=== PATIENT | female | born 1945 ===

== ENCOUNTER 2016-06-22 13:01 | Inpatient (IN) | payer MEDICARE, OTHER ==
--- NOTE | ~2016-06-22 | EGD ---
EGD REPORT [facility] [address] [address] NAME: IAN TAYLOR : [birth year] STATUS : ADM IN PAT#: [id number] AGE: 71 ADM/REG DATE : 06/22/16 MR#: [id number] REPORT SERV DATE: 06/24/16 DICTATED BY: BLAS SHAH DATE: 06/24/16 REPORT STATUS : Draft TRANSCRIBED BY: [facility] DATE: 06/24/16 Endoscopy Center Patient Name: Ian Taylor Date of : 1945 Attending MD: BLAS SHAH MD Procedure Date No Time: 06/24/2016 Procedure: Colonoscopy Indications: Melena, Anemia Referring MD: KEITH DOTY MD Medicines: Monitored Anesthesia Care Complications: No immediate complications. Estimated blood loss: None. Procedure: After I obtained informed consent, the scope was passed under direct vision. Throughout the procedure, the patient's blood pressure, pulse, and oxygen saturations were monitored continuously. The CF [id number] was introduced through the anus and advanced to the cecum, identified by appendiceal orifice and ileocecal valve. The colonoscopy was technically difficult and complex due to inadequate bowel prep. The patient tolerated the procedure poorly due to the patient's respiratory instability (pulmonary aspiration). The quality of the bowel preparation was inadequate. Findings: The perianal and digital rectal examinations were normal. Pertinent negatives include no palpable rectal lesions. Extensive amounts of semi-liquid stool was found in the transverse colon, in the ascending colon and in the cecum, precluding visualization. There is no endoscopic evidence of bleeding in the entire colon. The examination was ended prematurely secondary to patient desaturation and concern for aspiration. Impression: - Preparation of the colon was inadequate. - No suggestion of bleeding in the entire colon. - The exam was suboptimal due to patient preparation and patient instability. Recommendation: - Return patient to [facility] for [facility] care. - Repeat colonoscopy in 6 months because the bowel preparation was poor. Procedure Code(s): --- Professional --- 63281, Colonoscopy, flexible, proximal to splenic flexure; diagnostic, with or without collection of specimen(s) by brushing or washing, with or without EGD REPORT [facility] [address] [address] NAME: IAN TAYLOR : [birth year] STATUS : ADM IN [facility]#: [id number] AGE: 71 ADM/REG DATE : 06/22/16 MR#: [id number] REPORT SERV DATE: 06/24/16 DICTATED BY: BLAS SHAH DATE: 06/24/16 REPORT STATUS : Draft TRANSCRIBED BY: [employer] DATE: 06/24/16 colon decompression (separate procedure) Diagnosis Code(s): --- Professional --- K92.1, Melena D64.9, Anemia, unspecified CPT copyright 2013 [employer]. All rights reserved. The codes documented in this report are preliminary and upon pest control technician review may be revised to meet current compliance requirements. Blas Shah MD BLAS SHAH MD 06/24/2016 9:38 AM This report has been signed electronically. Number of Addenda: 0 Note Initiated On: 06/24/2016 8:31 AM Scope Withdrawal Time 0 hours 0 minutes 0 seconds [address] [address]
--- NOTE | ~2016-06-22 | DS ---
Discharge Summary [facility] [address] [facility] [place]. [address] NAME: IAN TAYLOR : [birth year] STATUS : DIS IN PAT#: [id number] AGE: 71 ADM/REG DATE : 06/22/16 MR#: [id number] REPORT SERV DATE: 06/28/16 DICTATED BY: BRETT MARTINEZ DATE: 06/27/16 REPORT STATUS : Draft TRANSCRIBED BY: JACQUELYN DATE: 06/27/16 ADMISSION DATE: 06/22/2016 DISCHARGE DATE: 06/27/2016 OUTPATIENT GI: Will be Dr. Mace. OUTPATIENT GUMMED TAPE PRESS OPERATOR: Dr. Maldonado. FINAL DIAGNOSES: 1. Acute blood loss anemia, status post 4 units of packed red blood cells. Upper gastrointestinal bleed or duodenal nodule bleeding, removed and epinephrine injected. 2. History of atrial fibrillation, flutter, and cardioversion. 3. History of valve repair. 4. Hypertension. 5. Rheumatoid arthritis. DIAGNOSTIC EXAMS: Chest x-ray showing no acute cardiopulmonary process. Repeat chest x-ray showing venous congestion consistent with mild volume overload or CHF pattern, discoid atelectasis left mid lung zone. HOSPITAL COURSE: Please refer to the H and P done by Dr. Weldon dated on 06/22/2016. Briefly, this is a 71-year-old female with atrial fibrillation, flutter, on sotalol and Eliquis. The patient has been feeling fatigued and noticed that has been having melena for the last several days. The patient had coffee-grounds emesis on the day of admission, came to the emergency room and was found to be anemic. The patient was given blood transfusion and GI was consulted. The patient eventually got an EGD after being off the Eliquis for 36 to 48 hours and they found a single bleeding duodenal polyp which was resected and retrieved, hiatal hernia, red blood in the gastric antrum. A colonoscopy was done which showed inadequate prep, but there was no bleeding found. The patient had an aspiration during the procedure and was temporarily intubated. She was extubated after the procedure and the patient is fine. When we did an x-ray which did not show any pneumonia and she did well without antibiotics. The patient's H and H was monitored, and from an initial 6.4 and 21.9, she will be discharged on 9.4 and 30. She is tolerating a GI soft diet and saturating at 98% on room air. Once we get GI to clear the patient, we will be discharging her with the above diagnoses. She will be on the following medications. Plaquenil 200 mg twice a day, Isamar 180 mg a day, Protonix 40 mg twice a day, sotalol 80 mg twice a day, Tylenol as needed, Norvasc 5 mg a day, Nazanin-C 1000 mg at bedtime, vitamin D3 of 2000 units a day. She will be off potassium, Lasix, Hyzaar, and Coreg for now, indefinitely off the Eliquis. FOLLOWUP: The patient will be following up with Dr. Hollis Pacheco in one week. Follow up with GI, Dr. Mace, in one to two weeks and Dr. Maldonado in two weeks. I would defer to them if the patient needs to be restarted on the other blood pressure medications and Eliquis. I have warned her that if she has any more bleeding, feeling faint, pale, not to hesitate to come back to the emergency room. This has been discussed with the patient. She agreed and understood the plan. Discharge Summary [place] [id number] [facility] [place]. [address] NAME: IAN TAYLOR : [birth year] STATUS : DIS IN PAT#: [id number] AGE: 71 ADM/REG DATE : 06/22/16 MR#: [id number] REPORT SERV DATE: 06/28/16 DICTATED BY: BRETT MARTINEZ. DATE: 06/27/16 REPORT STATUS : Draft TRANSCRIBED BY: JACQUELYN DATE: 06/27/16 Time spent 35 minutes. SABRA/JACQUELYN Brett Martinez M.D. / [id number] CC: Alessandro Downing M.D.
--- NOTE | ~2016-06-22 | EGD ---
EGD REPORT [facility] [address] [address] NAME: IAN TAYLOR : [birth year] STATUS : ADM IN PAT#: [id number] AGE: 71 ADM/REG DATE : 06/22/16 MR#: [id number] REPORT SERV DATE: 06/24/16 DICTATED BY: BLAS SHAH DATE: 06/24/16 REPORT STATUS : Draft [facility]ANSCRIBED [facility]: [facility] DATE: 06/24/16 Endoscopy Center Patient Name: Ian Taylor Date of : 1945 Attending MD: BLAS SHAH MD Procedure Date No Time: 06/24/2016 Procedure: Upper GI endoscopy Indications: Melena Medicines: Monitored Anesthesia Care Complications: No immediate complications. Estimated blood loss: Minimal. Procedure: After obtaining informed consent, the endoscope was passed under direct vision. Throughout the procedure, the patient's blood pressure, pulse, and oxygen saturations were monitored continuously. The GIF [id number] was introduced through the mouth, and advanced to the second part of duodenum. The upper GI endoscopy was accomplished without difficulty. The patient tolerated the procedure well. Findings: The examined esophagus was normal. A medium-sized hiatus hernia was present. Red blood was found in the gastric antrum. A single 8 mm semi-sessile polyp with bleeding was found in the duodenal bulb. Area was successfully injected with 4 mL of a 1:10,000 solution of epinephrine for hemostasis. The polyp was removed with a hot snare. Resection and retrieval were complete. Estimated blood loss was minimal. The exam was otherwise without abnormality. Impression: - Red blood in the gastric antrum. - Hiatal hernia - A single bleeding duodenal polyp. Resected and retrieved. Injected. - The examination was otherwise normal. Recommendation: - Perform a colonoscopy today. Procedure Code(s): --- Professional --- 34850, 59, Esophagogastroduodenoscopy, flexible, transoral; with control of bleeding, any method 85010, Esophagogastroduodenoscopy, flexible, transoral; with removal of tumor(s), polyp(s), or other lesion(s) by snare technique EGD REPORT [facility] [address] [place] [address] [place]. [address] NAME: IAN TAYLOR : [birth year] STATUS : ADM IN [facility]#: [id number] AGE: 71 ADM/REG DATE : 06/22/16 MR#: [id number] REPORT SERV DATE: 06/24/16 DICTATED BY: BLAS SHAH DATE: 06/24/16 REPORT STATUS : Draft TRANSCRIBED BY: [employer] DATE: 06/24/16 Diagnosis Code(s): --- Professional --- K92.2, Gastrointestinal hemorrhage, unspecified K31.7, Polyp of stomach and duodenum K92.1, Melena CPT copyright 2013 [employer]. All rights reserved. The codes documented in this report are preliminary and upon reel man review may be revised to meet current compliance requirements. Blas Shah MD BLAS SHAH MD 06/24/2016 9:42 AM This report has been signed electronically. Number of Addenda: 0 Note Initiated On: 06/24/2016 8:31 AM Scope Withdrawal Time 0 hours 0 minutes 0 seconds [address] [facility] [place] [address]
--- NOTE | ~2016-06-22 | HP ---
History And Physical [facility] [address] [facility] [place]. [address] NAME: IAN TAYLOR : [birth year] STATUS : ADM IN [facility]#: [id number] AGE: 71 ADM/REG DATE : 06/22/16 MR#: [id number] REPORT SERV DATE: 06/22/16 DICTATED BY: ALAINA RAMIREZ DATE: 06/22/16 REPORT STATUS : Draft TRANSCRIBED BY: JACQUELYN DATE: 06/22/16 DATE OF ADMISSION: 06/22/2016 CHIEF COMPLAINT: Fatigue. HISTORY OF PRESENT ILLNESS: The patient is a very pleasant 71-year-old white female. She has a history of atrial flutter and fib, is on sotalol and Eliquis. The patient reports that for about the last week and a half she has felt fatigued and winded at times, which is unusual for her. She felt dizzy today and decided to finally seek care. She presented to [facility] ER. She does report after extensive questioning that she has noticed a black color to her stools at that times over the last several days. In addition, she had an episode of emesis that appeared coffee-ground this morning. Her nausea is now resolved. She has only had one episode of vomiting. She has had no abdominal pain. No weight loss. She has not had any diarrhea. She has not had any associated fevers or chest pain. She does not take any jznv-bnb-xltacke NSAIDs. PAST MEDICAL HISTORY: 1. Positive for atrial flutter and AFib. 2. Rheumatoid arthritis. 3. Hypertension. 4. Allergies. 5. GERD. 6. Valvular heart disease with a valve repair, she cannot recall which valve. PAST SURGICAL HISTORY: She has had a left foot surgery x3, , valve repair, cholecystectomy, and appendectomy. ALLERGIES: NO KNOWN DRUG ALLERGIES. SOCIAL HISTORY: She is a nondrinker and nonsmoker. She has been for 50 years. Her is at bedside. She has multiple children and grandchildren. 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 FAMILY HISTORY: Negative for any GI malignancies. HOME MEDICATIONS: Include the followin. Tylenol p.r.n. 2. Norvasc 5 daily. 3. Eliquis 5 daily. 4. Coreg 6.25 twice daily. 5. Vitamin D3 daily. 6. Isamar 180 daily. 7. Lasix 40 mg daily. 8. Plaquenil 200 twice daily. 9. Losartan/HCTZ 100/12.5 daily. 10.Prilosec 20 daily. History And Physical [address] [place]. [address] NAME: IAN TAYLOR : [birth year] STATUS : ADM IN PAT#: [id number] AGE: 71 ADM/REG DATE : 06/22/16 MR#: [id number] REPORT SERV DATE: 06/22/16 DICTATED BY: ALAINA RAMIREZ DATE: 06/22/16 REPORT STATUS : Draft TRANSCRIBED BY: JACQUELYN DATE: 06/22/16 11.Klor-Con daily. 12.Sotalol 80 twice daily. 13.Nazanin-C daily. 14.Turmeric daily. 15.Besivance ophthalmic solution. 16.Durezol ophthalmic solution. REVIEW OF SYSTEMS: A full 10-point review of systems obtained. Pertinent positives already mentioned in the HPI. PHYSICAL EXAMINATION: VITAL SIGNS: BP 130/60, temperature 97.3, pulse 65, respirations rate 16, and saturations 98%. GENERAL: Pleasant, well-developed white female, talkative. HEENT: Normocephalic and atraumatic. Throat is clear. NECK: Supple. HEART: Regular rate and rhythm. LUNGS: Grossly clear. ABDOMEN: Soft, nondistended, and nontender. EXTREMITIES: Warm and dry. SKIN: Intact. She has no peripheral edema. Pulses are 2+ at the feet. Hemoccult was positive per the ER physician, but it was brown stool. LABORATORY AND X-RAY: H and H are 6.4 and 22, white count 7.6, and platelets are 195. Coags are normal. Chemistry panel is normal. Troponin is negative at 0.02. Mag is normal. EKG shows sinus rhythm. Chest x-ray is clear. ASSESSMENT/PLAN: 1. Gastrointestinal bleed with significant anemia. We will transfuse a total of 2 units now, then recheck her hemoglobin. If she is less than 8, we will give [address] on a Protonix drip. Keep her n.p.o. Provide IV fluid resuscitation. Do serial hemoglobin and hematocrit. We will consult GI who I have already called personally for endoscopy. I suspect she will need an upper endoscopy to start. We will hold her Eliquis and follow her picture clinically. Currently, she is very stable hemodynamically, I think she could go to a monitored bed. 2. History of atrial flutter/atrial fibrillation. We will continue her sotalol, but we will have to hold her other rate-slowing medications given that she has ongoing gastrointestinal bleeding. We will also hold her Eliquis. 3. History of rheumatoid arthritis. Continue Plaquenil. 4. History of hypertension. Holding antihypertensives. 5. Deep venous thrombosis prophylaxis. SCDs for now since she is bleeding. 6. Disposition. Pending above. History And Physical [address] [place]. [address] NAME: IAN TAYLOR : [birth year] STATUS : ADM IN [facility]#: [id number] AGE: 71 ADM/REG DATE : 06/22/16 MR#: [id number] REPORT SERV DATE: 06/22/16 DICTATED BY: ALAINA RAMIREZ DATE: 06/22/16 REPORT STATUS : Draft TRANSCRIBED BY: JACQUELYN DATE: 06/22/16 LAKSHMI/JACQUELYN Alaina Ramirez M.D. / [id number] CC: Alessandro Downing M.D. Mark Thel, M.D.
--- NOTE | ~2016-06-22 | CN ---
Consultation Report [facility] [address] [place]. [address] NAME: IAN TAYLOR : [birth year] STATUS : ADM IN PAT#: [id number] AGE: 71 ADM/REG DATE : 06/22/16 MR#: [id number] REPORT SERV DATE: 06/22/16 DICTATED BY: MIRACLE MORGAN DATE: 06/22/16 REPORT STATUS : Draft TRANSCRIBED BY: MODJoe DATE: 06/22/16 DATE OF CONSULTATION: 06/22/2016 REASON FOR CONSULTATION: Evaluation and management of anemia and GI bleed. HISTORY OF PRESENT ILLNESS: Ms. Ian Taylor is a very pleasant 71-year-old female patient, who presented to [facility] today with weakness and shortness of breath. The patient states that she has been feeling these symptoms along with fatigue for several months now. Initially, she attributed to her heart stating that she has abnormal heart rhythm as well as a heart murmur. She states that she has been on a regimen of Eliquis since 10/2015 as well as in 02/2016 she underwent cardioversion. She states that this has been the second cardioversion that she has undertaken for atrial flutter. She states that over the last few days she has noticed her stools to be darker than normal. She had an episode of nausea with emesis this morning which she states she threw up what appeared to be coffee grounds. She has history of colonoscopy multiple years ago greater than 20 per her report done at [facility]. She cannot recall any of the findings on that exam. Her hemoglobin on admission was 6.4, BUN 26, creatinine of 0.69. Of note, she had a hemoglobin in 02/2016 noted to be 12.6. She took her Eliquis this morning. Presently, she states that she has no abdominal pain. Over the past several months, she has had early satiety. No dysphagia, odynophagia. No hematochezia. No nausea up until this morning. Her emesis did not return any bright red blood. She has no family history of colon cancer or colon polyps. I have discussed with the patient as well as her who is present at the bedside. We will allow the Eliquis to clear her system, she took it this morning. We will begin a slow bowel prep as she has noted she has problems tolerating a bowel prep. We will plan on EGD and colonoscopy to be done 06/24/2016 unless she has acute signs of bleeding and large volume blood loss. I did discuss the risks, benefits, alternatives, and complications with her and her to include, but not limited to risk of bleeding, perforation, infection, reaction to medication, as well as cardiac and pulmonary side effects. She is agreeable to proceed. PAST MEDICAL HISTORY: Positive for C. diff diarrhea in 05/2015 treated by her primary care physician, Dr. Hollis Pacheco; atrial fib/flutter, status post 2 cardioversions on regimen of Eliquis; cardiac murmur; cataracts; hypertension; rheumatoid arthritis, on Plaquenil; cholecystectomy; appendectomy; left foot surgery; cellulitis of the left leg; and thyroid cystectomy. FAMILY HISTORY: Noncontributory from a GI standpoint. SOCIAL HISTORY: She is . She denies alcohol, tobacco, or illicits. She denies NSAIDs. She still works at [employer]. ALLERGIES: NOTHING. HOME MEDICATIONS: Consist of Tylenol, Norvasc, Eliquis, Coreg, turmeric, Durezol, Besivance, Plaquenil, Isamar, Lasix, Nazanin C, vitamin D3, Hyzaar, Prilosec, potassium, and Betapace. Consultation Report [address] [place]. [address] NAME: IAN TAYLOR : [birth year] STATUS : ADM IN [facility]#: [id number] AGE: 71 ADM/REG DATE : 06/22/16 MR#: [id number] REPORT SERV DATE: 06/22/16 DICTATED BY: MIRACLE MORGAN DATE: 06/22/16 REPORT STATUS : Draft TRANSCRIBED BY: MODL DATE: 06/22/16 REVIEW OF SYSTEMS: A 10-point review of systems has been obtained with pertinent positives being addressed in the history of present illness. PERTINENT LABORATORY DATA: Sodium 143, potassium 4.2, BUN is 26, creatinine 0.69, white count 7.6, hemoglobin 6.4, hematocrit 21.9, and platelet count 195. INR of 1.4. PHYSICAL EXAMINATION: VITAL SIGNS: Temperature 97.3, pulse 65, respirations of 16, and blood pressure 131/60. NEURO: Reveals an alert, female, resting in bed. No obvious focal deficits. GENERAL: She is cooperative. She is in no obvious acute distress. She is awake. She is alert. She is oriented x3. HEAD, EARS, EYES, NOSE, AND THROAT: Anicteric. Pupils equal, round, reactive to light and accommodation. Normocephalic and atraumatic. NECK: No JVD. No palpable nodes. LUNGS: Diminished throughout. Normal respiratory effort exhibited. CARDIOVASCULAR SYSTEM: Regular rate and rhythm. No audible murmur. ABDOMEN: Soft, obese, nontender nondistended. No rebound, guarding, or organomegaly elicited on exam. Active bowel sounds in all four quadrants. EXTREMITIES: She has left lower extremity scant edema which she states is chronic. SKIN: Warm, dry, intact, but pale. ASSESSMENT: 1. Acute blood loss anemia. 2. Hemoccult-positive stools with melena. 3. Atrial fibrillation, on Eliquis. 4. Nausea with vomiting. 5. Weakness and dizziness secondary to acute blood loss anemia. PLAN: 1. Transfuse. 2. PPI drip. 3. Soft diet tonight. 4. Clear liquid diet in the morning. 5. Allow Eliquis to clear her system. 6. EGD as well as colonoscopy on 06/24/2016. We will begin her bowel prep today. We will follow. DEBORAH/JACQUELYN SOFY Myers Consultation Report [address] [address] NAME: IAN TAYLOR : [birth year] STATUS : ADM IN PAT#: [id number] AGE: 71 ADM/REG DATE : 06/22/16 MR#: [id number] REPORT SERV DATE: 06/22/16 DICTATED BY: MIRACLE MORGAN DATE: 06/22/16 REPORT STATUS : Draft TRANSCRIBED BY: JACINTOL DATE: 06/22/16 / [id number] CC: Alessandro Downing M.D.
[2016-06-22 11:17] LABS: BASOPHILS 0.3 %; BASOPHILS ABSOLUTE 0.02 10/3/uL (0.0-0.16); EOSINOPHILS 1.2 %; EOSINOPHILS ABSOLUTE 0.09 10/3/uL (0.0-0.53); IMMATURE GRANULOCYTES 0.5 %; IMMATURE GRANULOCYTES ABSOLUTE 0.04 10/3/uL (0.0-0.11); LYMPHOCYTES 9.5 %; LYMPHOCYTES ABSOLUTE 0.72 10/3/uL (0.67-4.30); MEAN PLATELET VOLUME 9.6 fL (9.2-13.0); MONOCYTES ABSOLUTE 0.38 10/3/uL (0.21-1.20); NEUTROPHILS 83.5 %; NEUTROPHILS ABSOLUTE 6.32 10/3/uL (2.02-8.40); PLATELET COUNT 195 10/3/uL (150-400); RBC DISTRIBUTION WIDTH 15.4 % (12.0-16.0); WHITE BLOOD CELLS 7.6 10/3/uL (4.5-10.5)
[2016-06-22 11:18] LABS: HEMATOCRIT 21.9 % (36.0-48.0); HEMOGLOBIN 6.4 g/dL (12.0-16.0); MEAN CORPUSCULAR VOLUME 81.4 fL (80-100); RED CELL COUNT 2.69 10/6/uL (4.0-5.6)
[2016-06-22 11:19] LABS: MANUAL DIFF NO %; MEAN CORPUS HGB CONC 29.2 g/dL (32.0-36.0); MEAN CORPUSCULAR HEMOGLOB 23.8 pg (26.0-34.0)
[2016-06-22 11:24] LABS: INTERNATIONAL NORMAL RATI 1.4 UNITS (-); PARTIAL THROMBO TIME 32.3 SEC (22.5-37.2); PROTIME (NOT ORD) 17.4 SEC (12.0-14.5)
[2016-06-22 11:34] LABS: BUN (BLOOD UREA NITROGEN) 26 MG/DL (6-23); CALCIUM, SERUM 8.5 MG/DL (8.5-10.4); CHEST PAIN PROFILE TAT 0 Hrs 23 Mins; CHLORIDE, SERUM 108 MMOL/L (96-112); CO2 (CARBON DIOXIDE) 27 MMOL/L (24-34); CREATININE 0.69 MG/DL (0.55-1.02); GFR AFRICAN AMERICAN 103 ML/MIN (>=60); GFR NON AFRICAN AMERICAN 89 ML/MIN (>=60); GLUCOSE, SERUM 114 MG/DL (60-99); POTASSIUM, SERUM 4.2 MMOL/L (3.5-5.3); SODIUM, SERUM 143 MMOL/L (135-148); TROPONIN I <0.02 NG/ML (<0.05)
[~2016-06-22 13:01] MED LIST: ALLEGRA180 PO; BETAPACE80 PO; CEFZIL500 MG PO; COREG25 PO; COREG6 PO; ELIQUIS 5 MG TAB5 MG PO; ESTER-C PO; HYZAAR1 TAB PO; KLOR-CON M2020 MEQ PO; L40 PO; METHOC500B PO; NORV5 PO; PLAQ200B PO; PREV15 PO; PRILOSEC40 MG PO; PROAIRRESP INH; PROBIOTIC; T3 PO; TESSALON200 MG PO; VITAMIN D31000 UNIT PO
[2016-06-22] MEDS ORDERED: NORV5 PO (13:02)
[2016-06-22] MEDS ORDERED: COREG6 PO (13:02)
[2016-06-22] MEDS ORDERED: HYZAAR1 TAB PO (13:02)
[2016-06-22] MEDS ORDERED: ESTER-C PO (13:03)
[2016-06-22] MEDS ORDERED: BETAPACE80 PO (13:03)
[2016-06-22] MEDS ORDERED: ELIQUIS 5 MG TAB5 MG PO (13:03)
[2016-06-22] MEDS ORDERED: PRILOSEC OTC20 MG PO (13:04)
[2016-06-22] MEDS ORDERED: ALLEGRA180 PO (13:04)
[2016-06-22] MEDS ORDERED: VITAMIN D31000 UNIT PO (13:04)
[2016-06-22] MEDS ORDERED: TURMERIC PO (13:05)
[2016-06-22] MEDS ORDERED: EYE OPH ×2 (13:06→13:07)
[2016-06-22] MEDS ORDERED: DUREZOL 0.05% OPH (13:06)
[2016-06-22] MEDS ORDERED: BESIVANCE 0.6% OPH (13:07)
[2016-06-22 19:46] LABS: HEMATOCRIT 29.4 % (36.0-48.0); HEMOGLOBIN 9.2 g/dL (12.0-16.0)
[2016-06-23 01:51] LABS: BASOPHILS 0.2 %; BASOPHILS ABSOLUTE 0.01 10/3/uL (0.0-0.16); EOSINOPHILS 1.4 %; EOSINOPHILS ABSOLUTE 0.09 10/3/uL (0.0-0.53); HEMOGLOBIN 8.3 g/dL (12.0-16.0); IMMATURE GRANULOCYTES 0.6 %; IMMATURE GRANULOCYTES ABSOLUTE 0.04 10/3/uL (0.0-0.11); LYMPHOCYTES 16.3 %; LYMPHOCYTES ABSOLUTE 1.06 10/3/uL (0.67-4.30); MEAN CORPUSCULAR VOLUME 81.6 fL (80-100); MEAN PLATELET VOLUME 9.5 fL (9.2-13.0); MONOCYTES 7.8 %; MONOCYTES ABSOLUTE 0.51 10/3/uL (0.21-1.20); NEUTROPHILS 73.7 %; PLATELET COUNT 151 10/3/uL (150-400); RBC DISTRIBUTION WIDTH 15.2 % (12.0-16.0); RED CELL COUNT 3.15 10/6/uL (4.0-5.6); WHITE BLOOD CELLS 6.5 10/3/uL (4.5-10.5)
[2016-06-23 01:52] LABS: HEMATOCRIT 25.7 % (36.0-48.0); MANUAL DIFF NO %; MEAN CORPUS HGB CONC 32.3 g/dL (32.0-36.0); MEAN CORPUSCULAR HEMOGLOB 26.3 pg (26.0-34.0)
[2016-06-23 01:59] LABS: INTERNATIONAL NORMAL RATI 1.2 UNITS (-); PROTIME (NOT ORD) 14.7 SEC (12.0-14.5)
[2016-06-23 02:53] LABS: % IRON SAT 7 % (20-50); CALCIUM, SERUM 8.4 MG/DL (8.5-10.4); CHLORIDE, SERUM 111 MMOL/L (96-112); CO2 (CARBON DIOXIDE) 28 MMOL/L (24-34); CREATININE 0.64 MG/DL (0.55-1.02); FERRITIN 5 NG/ML (8-252); GFR AFRICAN AMERICAN 106 ML/MIN (>=60); GFR NON AFRICAN AMERICAN 91 ML/MIN (>=60); GLUCOSE, SERUM 108 MG/DL (60-99); IRON BINDING CAPACITY 361 MCG/DL (225-410); IRON, SERUM 26 MCG/DL (35-150); SODIUM, SERUM 145 MMOL/L (135-148)
[2016-06-23 02:54] LABS: BUN (BLOOD UREA NITROGEN) 21 MG/DL (6-23); FOLATE 30.5 NG/ML (>5.2)
[2016-06-23 13:06] LABS: HEMATOCRIT 25.9 % (36.0-48.0); HEMOGLOBIN 8.3 g/dL (12.0-16.0)
[2016-06-23 20:41] LABS: HEMATOCRIT 25.1 % (36.0-48.0); HEMOGLOBIN 7.6 g/dL (12.0-16.0)
[2016-06-24 06:21] LABS: BASOPHILS 0.3 %; BASOPHILS ABSOLUTE 0.02 10/3/uL (0.0-0.16); EOSINOPHILS 3.6 %; EOSINOPHILS ABSOLUTE 0.23 10/3/uL (0.0-0.53); IMMATURE GRANULOCYTES 0.5 %; IMMATURE GRANULOCYTES ABSOLUTE 0.03 10/3/uL (0.0-0.11); LYMPHOCYTES 14.7 %; LYMPHOCYTES ABSOLUTE 0.94 10/3/uL (0.67-4.30); MEAN CORPUS HGB CONC 31.1 g/dL (32.0-36.0); MEAN CORPUSCULAR HEMOGLOB 26.3 pg (26.0-34.0); MEAN PLATELET VOLUME 9.9 fL (9.2-13.0); MONOCYTES 7.7 %; MONOCYTES ABSOLUTE 0.49 10/3/uL (0.21-1.20); NEUTROPHILS 73.2 %; NEUTROPHILS ABSOLUTE 4.68 10/3/uL (2.02-8.40); PLATELET COUNT 160 10/3/uL (150-400); RBC DISTRIBUTION WIDTH 15.2 % (12.0-16.0); RED CELL COUNT 3.53 10/6/uL (4.0-5.6); WHITE BLOOD CELLS 6.4 10/3/uL (4.5-10.5)
[2016-06-24 06:29] LABS: INTERNATIONAL NORMAL RATI 1.1 UNITS (-); PROTIME (NOT ORD) 14.2 SEC (12.0-14.5)
[2016-06-24 06:33] LABS: CALCIUM, SERUM 8.3 MG/DL (8.5-10.4); CHLORIDE, SERUM 113 MMOL/L (96-112); CO2 (CARBON DIOXIDE) 26 MMOL/L (24-34); CREATININE 0.53 MG/DL (0.55-1.02); GFR AFRICAN AMERICAN 112 ML/MIN (>=60); GFR NON AFRICAN AMERICAN 97 ML/MIN (>=60); GLUCOSE, SERUM 107 MG/DL (60-99); POTASSIUM, SERUM 4.2 MMOL/L (3.5-5.3); SODIUM, SERUM 147 MMOL/L (135-148)
[2016-06-24 06:34] LABS: BUN (BLOOD UREA NITROGEN) 15 MG/DL (6-23)
[2016-06-24 06:38] LABS: HEMATOCRIT 29.9 % (36.0-48.0); HEMOGLOBIN 9.3 g/dL (12.0-16.0); MANUAL DIFF NO %; MEAN CORPUSCULAR VOLUME 84.7 fL (80-100)
[2016-06-24 12:05] LABS: HEMATOCRIT 30.3 % (36.0-48.0); HEMOGLOBIN 9.4 g/dL (12.0-16.0)
[2016-06-25 06:54] LABS: BASOPHILS 0.4 %; BASOPHILS ABSOLUTE 0.02 10/3/uL (0.0-0.16); EOSINOPHILS 2.3 %; EOSINOPHILS ABSOLUTE 0.13 10/3/uL (0.0-0.53); HEMOGLOBIN 7.9 g/dL (12.0-16.0); IMMATURE GRANULOCYTES 0.2 %; IMMATURE GRANULOCYTES ABSOLUTE 0.01 10/3/uL (0.0-0.11); LYMPHOCYTES 15.7 %; LYMPHOCYTES ABSOLUTE 0.88 10/3/uL (0.67-4.30); MEAN CORPUS HGB CONC 30.6 g/dL (32.0-36.0); MEAN CORPUSCULAR HEMOGLOB 26.2 pg (26.0-34.0); MEAN CORPUSCULAR VOLUME 85.4 fL (80-100); MEAN PLATELET VOLUME 10.2 fL (9.2-13.0); MONOCYTES 7.8 %; MONOCYTES ABSOLUTE 0.44 10/3/uL (0.21-1.20); NEUTROPHILS 73.6 %; NEUTROPHILS ABSOLUTE 4.13 10/3/uL (2.02-8.40); PLATELET COUNT 126 10/3/uL (150-400); RBC DISTRIBUTION WIDTH 15.9 % (12.0-16.0); RED CELL COUNT 3.02 10/6/uL (4.0-5.6); WHITE BLOOD CELLS 5.6 10/3/uL (4.5-10.5)
[2016-06-25 06:56] LABS: HEMATOCRIT 25.8 % (36.0-48.0); MANUAL DIFF NO %
[2016-06-25 06:58] LABS: CHLORIDE, SERUM 108 MMOL/L (96-112); CO2 (CARBON DIOXIDE) 27 MMOL/L (24-34); CREATININE 0.55 MG/DL (0.55-1.02); GFR AFRICAN AMERICAN 111 ML/MIN (>=60); GFR NON AFRICAN AMERICAN 96 ML/MIN (>=60); GLUCOSE, SERUM 87 MG/DL (60-99); POTASSIUM, SERUM 3.9 MMOL/L (3.5-5.3); SODIUM, SERUM 142 MMOL/L (135-148)
[2016-06-25 06:59] LABS: BUN (BLOOD UREA NITROGEN) 11 MG/DL (6-23)
[2016-06-25 17:34] LABS: HEMOGLOBIN 9.2 g/dL (12.0-16.0)
[2016-06-25 17:36] LABS: HEMATOCRIT 29.3 % (36.0-48.0)
[2016-06-26 02:06] LABS: BASOPHILS 0.5 %; BASOPHILS ABSOLUTE 0.03 10/3/uL (0.0-0.16); EOSINOPHILS 2.6 %; EOSINOPHILS ABSOLUTE 0.16 10/3/uL (0.0-0.53); HEMATOCRIT 28.9 % (36.0-48.0); HEMOGLOBIN 9.1 g/dL (12.0-16.0); IMMATURE GRANULOCYTES 0.3 %; IMMATURE GRANULOCYTES ABSOLUTE 0.02 10/3/uL (0.0-0.11); LYMPHOCYTES 12.6 %; LYMPHOCYTES ABSOLUTE 0.77 10/3/uL (0.67-4.30); MANUAL DIFF NO %; MEAN CORPUS HGB CONC 31.5 g/dL (32.0-36.0); MEAN CORPUSCULAR HEMOGLOB 26.5 pg (26.0-34.0); MEAN PLATELET VOLUME 10.3 fL (9.2-13.0); MONOCYTES 8.9 %; MONOCYTES ABSOLUTE 0.54 10/3/uL (0.21-1.20); NEUTROPHILS 75.1 %; NEUTROPHILS ABSOLUTE 4.57 10/3/uL (2.02-8.40); PLATELET COUNT 148 10/3/uL (150-400); RED CELL COUNT 3.44 10/6/uL (4.0-5.6); WHITE BLOOD CELLS 6.1 10/3/uL (4.5-10.5)
[2016-06-26 10:20] LABS: HEMATOCRIT 31.7 % (36.0-48.0); HEMOGLOBIN 9.8 g/dL (12.0-16.0)
[2016-06-27 06:14] LABS: BASOPHILS 0.4 %; BASOPHILS ABSOLUTE 0.02 10/3/uL (0.0-0.16); EOSINOPHILS 3.7 %; EOSINOPHILS ABSOLUTE 0.18 10/3/uL (0.0-0.53); HEMOGLOBIN 9.4 g/dL (12.0-16.0); IMMATURE GRANULOCYTES 0.2 %; IMMATURE GRANULOCYTES ABSOLUTE 0.01 10/3/uL (0.0-0.11); LYMPHOCYTES 17.6 %; LYMPHOCYTES ABSOLUTE 0.85 10/3/uL (0.67-4.30); MEAN CORPUS HGB CONC 31.3 g/dL (32.0-36.0); MEAN CORPUSCULAR HEMOGLOB 26.5 pg (26.0-34.0); MEAN CORPUSCULAR VOLUME 84.5 fL (80-100); MEAN PLATELET VOLUME 10.1 fL (9.2-13.0); MONOCYTES 7.9 %; MONOCYTES ABSOLUTE 0.38 10/3/uL (0.21-1.20); NEUTROPHILS 70.2 %; NEUTROPHILS ABSOLUTE 3.39 10/3/uL (2.02-8.40); PLATELET COUNT 159 10/3/uL (150-400); RED CELL COUNT 3.55 10/6/uL (4.0-5.6); WHITE BLOOD CELLS 4.8 10/3/uL (4.5-10.5)
[2016-06-27 06:21] LABS: MANUAL DIFF NO %
[2016-06-27 06:25] LABS: BUN (BLOOD UREA NITROGEN) 9 MG/DL (6-23); CALCIUM, SERUM 8.5 MG/DL (8.5-10.4); CHLORIDE, SERUM 108 MMOL/L (96-112); CO2 (CARBON DIOXIDE) 27 MMOL/L (24-34); CREATININE 0.66 MG/DL (0.55-1.02); GFR AFRICAN AMERICAN 104 ML/MIN (>=60); GFR NON AFRICAN AMERICAN 90 ML/MIN (>=60); GLUCOSE, SERUM 93 MG/DL (60-99); SODIUM, SERUM 144 MMOL/L (135-148)
== END 2016-06-27 11:21 | disposition home or self-care (01) | DRG 378 ==
LOC: ER 13:01 → 2SO 15:06
PROVIDERS: Emergency Medicine; Internal Medicine; Internal Medicine Gastroenterology; Nurse Practitioner Family
PROC: 30233N1 Transfusion of Nonautologous Red Blood Cells into Peripheral Vein, Percutaneous Approach (ICD-10-PCS; 2016-06-22)
PROC: 0DJD8ZZ Inspection of Lower Intestinal Tract, Via Natural or Artificial Opening Endoscopic (ICD-10-PCS; principal; 2016-06-24 07:30)
PROC: 0DB98ZX Excision of Duodenum, Via Natural or Artificial Opening Endoscopic, Diagnostic (ICD-10-PCS; 2016-06-24 07:30)
PROC: 3E0G8GC Introduction of Other Therapeutic Substance into Upper GI, Via Natural or Artificial Opening Endoscopic (ICD-10-PCS; 2016-06-24 07:30)
DX: K57.11 Diverticulosis of small intestine without perforation or abscess with bleeding (principal); D62 Acute posthemorrhagic anemia; I50.9 Heart failure, unspecified; I48.91 Unspecified atrial fibrillation; L03.116 Cellulitis of left lower limb; K92.1 Melena; K31.7 Polyp of stomach and duodenum; M06.9 Rheumatoid arthritis, unspecified; R11.0 Nausea; K44.9 Diaphragmatic hernia without obstruction or gangrene; Z98.890 Other specified postprocedural states
CPT/HCPCS: 36415; 36430; 71010; 80048; 82607; 82728; 82746; 83540; 83550; 83735; 84484; 85014; 85018; 85025; 85610; 85730; 86850; 86900; 86901; 86920; 88305; 93005; 94640; 99285; A9270-GY; C9113; J0330; J0360; J2405; J2550; P9016